=== PATIENT | female | born 1945 | race Caucasian/White ===

== ENCOUNTER → 2017-10-01 | Outpatient (CLI) | payer OTHER ==
[~2017-10-01] MED LIST: LEVO50TA11 PO
== END | disposition home or self-care (01) ==
LOC: RAH 08:34
PROVIDERS: ATTEND Internal Medicine
DX: D32.0 Benign neoplasm of cerebral meninges (principal); R51 Headache
CPT/HCPCS: 70450

== ENCOUNTER → 2018-09-20 | Outpatient (CLI) | payer OTHER | END | disposition home or self-care (01) | LOC: OIH 10:19 | PROVIDERS: ATTEND Internal Medicine | DX: M16.11 Unilateral primary osteoarthritis, right hip (principal); M85.88 Other specified disorders of bone density and structure, other site | CPT/HCPCS: 73502 ==

== ENCOUNTER → 2018-09-25 | Outpatient (CLI) | payer OTHER | END | disposition home or self-care (01) | LOC: RAH 14:19 | PROVIDERS: ATTEND Internal Medicine | DX: N32.89 Other specified disorders of bladder (principal); I70.90 Unspecified atherosclerosis; M47.815 Spondylosis without myelopathy or radiculopathy, thoracolumbar region; Z90.710 Acquired absence of both cervix and uterus | CPT/HCPCS: 74176 ==

== ENCOUNTER → 2019-01-20 | Outpatient (CLI) | payer OTHER | END | disposition home or self-care (01) | LOC: OIH 15:47 | PROVIDERS: ATTEND Internal Medicine | DX: I10 Essential (primary) hypertension (principal) | CPT/HCPCS: 71046 ==

== ENCOUNTER → 2019-04-08 | Outpatient (CLI) | payer OTHER ==
[~2019-04-08] MED LIST changes: +AMLO2.5T4 PO; +ASPI-1012 PO; +ATOR10TA69 PO; +HYDR-4457 PO
== END | disposition home or self-care (01) ==
LOC: OIH 08:09
PROVIDERS: ATTEND Internal Medicine
DX: M17.0 Bilateral primary osteoarthritis of knee (principal); M25.762 Osteophyte, left knee; M25.761 Osteophyte, right knee
CPT/HCPCS: 73560

== ENCOUNTER 2023-04-06 09:08 | Emergency (ER) | payer MEDICARE ==
[~2023-04-06] VITALS: Ht 162.6 cm; Wt 49.9 kg
[~2023-04-06 09:08] MED LIST changes: +AEC81 PO; -ASPI-1012 PO; +BIOT10005 PO; +FOLI0.8T3 PO; +HYDR-4060 PO; -HYDR-4457 PO; +LEVO50CA4 PO; -LEVO50TA11 PO; +MVIT PO; +VITAMIN B12 PO; +[UNRECOGNIZED DRUG - CODE] PO
[2023-04-06] MEDS ORDERED: LIDOCAINE HCL 1% 20 ML VIAL ONE (15:20)
[2023-04-06] MEDS ORDERED: LIDOCAINE HCL 1% 20 ML VIAL INJ SCH (15:30)
[2023-04-06] MEDS ORDERED: OCTYL 2-CYANOACRYLATE 1 EACH TP ONE (15:41)
[2023-04-06 16:30] VITALS: BP 193/93; PULSE 69; RESP 18; O2SAT 97
[2023-04-06] MEDS ORDERED: IBUP-2070 PO (19:18)
== END 2023-04-06 16:30 | disposition left against medical advice (07) ==
LOC: EDH 09:08
DX: S52.502A Unspecified fracture of the lower end of left radius, initial encounter for closed fracture (principal); I10 Essential (primary) hypertension; E78.00 Pure hypercholesterolemia, unspecified; E03.9 Hypothyroidism, unspecified; Z79.82 Long term (current) use of aspirin; Z88.3 Allergy status to other anti-infective agents; Z90.49 Acquired absence of other specified parts of digestive tract; W01.0XXA Fall on same level from slipping, tripping and stumbling without subsequent striking against object, initial encounter; Y93.01 Activity, walking, marching and hiking; Y92.89 Other specified places as the place of occurrence of the external cause; Y99.8 Other external cause status
CPT/HCPCS: 25605; 29105; 70450; 73030; 73090; 73100; 93005

== ENCOUNTER → 2023-10-04 | Outpatient (CLI) | payer MEDICARE ==
[~2023-10-04] MED LIST changes: +IBUP-2070 PO
== END | disposition home or self-care (01) ==
LOC: RAH 09:58
PROVIDERS: ATTEND Internal Medicine
DX: M41.85 Other forms of scoliosis, thoracolumbar region (principal); M54.14 Radiculopathy, thoracic region; M54.16 Radiculopathy, lumbar region; R10.9 Unspecified abdominal pain; Z96.643 Presence of artificial hip joint, bilateral
CPT/HCPCS: 72082

== ENCOUNTER → 2025-03-17 | Outpatient (CLI) | payer MEDICARE ==
[~2025-03-17] MED LIST changes: +IBUP-1492 PO; -IBUP-2070 PO; -LEVO50CA4 PO; +LEVO50CA5 PO
--- NOTE | 2025-03-20 00:26 | HMCIMG ---
EXAM: CT Abdomen and Pelvis without IV contrast CLINICAL HISTORY: Renal colic. TECHNIQUE: Thin collimated axial CT images of the abdomen and pelvis were obtained with sagittal and coronal reformatted images also submitted. CT scan is done according to ALARA (As Low As Reasonably Achievable). CONTRAST: None. COMPARISON: None. FINDINGS: The included lungs are clear. Small pericardial effusion. No focal abnormality within the pancreas, spleen, adrenals, or kidneys. No renal, ureteral, or bladder calculus. No hydronephrosis. Disproportionate enlargement of the left hepatic lobe. Status post cholecystectomy. Dilated CBD measures up to 1.3 cm in diameter, which could be secondary to postcholecystectomy physiological changes. Grossly unremarkable urinary bladder. Status post hysterectomy. No obvious bowel wall thickening, dilatation, or obstruction. A component of mild constipation is present in the colon. Status post appendectomy. 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 No pathological lymphadenopathy in the abdomen or pelvis. No ascites or pneumoperitoneum. No acute bony abnormality is evident. Degenerative osseous changes. Mild osteopenia. Hip joint replacement prosthesis bilaterally. IMPRESSIONS: No acute process in the abdomen or pelvis. No renal, ureteral, or bladder calculus. No hydronephrosis. Status post cholecystectomy. Dilated CBD measures up to 1.3 cm in diameter, which could be secondary to postcholecystectomy physiological changes. Further evaluation with MRCP may be done if clinically warranted. Disproportionate enlargement of the left hepatic lobe, recommend liver function test for further evaluation. /[place]
== END | disposition home or self-care (01) ==
LOC: RAH 10:36
PROVIDERS: ATTEND Internal Medicine
DX: R16.0 Hepatomegaly, not elsewhere classified (principal); N23 Unspecified renal colic; K83.8 Other specified diseases of biliary tract; Z90.49 Acquired absence of other specified parts of digestive tract; J90 Pleural effusion, not elsewhere classified; I70.0 Atherosclerosis of aorta; M85.80 Other specified disorders of bone density and structure, unspecified site; M47.816 Spondylosis without myelopathy or radiculopathy, lumbar region
CPT/HCPCS: 74176